=== PATIENT | male | born 1995 | race Hispanic/Latino ===

== ENCOUNTER 2017-04-01 16:35 | Emergency (ER) | payer SELFPAY ==
[~2017-04-01] VITALS: Ht 160 cm; Wt 71.2 kg
[2017-04-01] MEDS ORDERED: NS 1,000 ML IV SCH (18:11)
[2017-04-01] MEDS ORDERED: KETOROLAC 30 MG/ML VIAL (J1885) IV ONE (18:15)
[2017-04-01 19:07] LABS: BASO % 0.5 % (0.0-1.0); EOS # 0.2 10^3/uL (0.0-0.50); IMMATURE GRANULOCYTE % 0.5 % (0-0); LYMPH # 2.2 10^3/uL (1.5-6.5); MEAN CORPUSCULAR HEMOGLOBIN 30.1 pg (27.0-33.0); MEAN CORPUSCULAR HGB CONC 33.3 g/dl (32.0-36.5); MEAN CORPUSCULAR VOLUME 90.2 fl (80.0-96.0); MONO # 0.8 10^3/uL (0.0-0.8); MONO % 10.1 % (0.0-5.0); NEUTROPHILS # 4.5 10^3/uL (1.8-7.7); NEUTROPHILS % 58.9 % (36.0-66.0); PLATELET COUNT, AUTOMATED 319 10^3/uL (150-450); RED CELL DISTRIBUTION WIDTH 13.2 % (11.5-14.5); WHITE BLOOD COUNT 7.7 10^3/uL (4.0-10.0)
--- NOTE | 2017-04-01 19:17 | REP ---
CT abdomen and pelvis without IV or oral contrast: Renal stone protocol. History: Question renal colic. No comparison study. CT findings: Preliminary digital tubular stock glass bulb machine former radiograph demonstrates an unremarkable bowel gas pattern. The lung bases are clear. The liver and the spleen are normal in size, homogeneous in texture. There is mild fatty infiltration of the liver diffusely. No adrenal lesion is seen. Gallbladder and the pancreas are unremarkable. There is no evidence of hydronephrosis. No intrarenal calculus is seen on either side. Normal caliber aorta is seen. No ureteral stone is observed. No bladder calculus seen. Prostate, seminal vesicles and urinary bladder are unremarkable. No abdominal wall defect is seen. Small and large intestinal bowel loops show no abnormality. Normal appendix is seen in the right lower quadrant. Impression: Unremarkable CT abdomen and pelvis without IV or oral contrast. No urinary tract calculi seen. Normal appendix noted. Signed by Ezekiel Laguna MD 04/01/2017 07:51 P
[2017-04-01 19:36] LABS: ALBUMIN 4.3 GM/DL (3.2-5.2); ALBUMIN/GLOBULIN RATIO 1.16 (1.00-1.93); ALKALINE PHOSPHATASE 78 U/L (45-117); ALT/SGPT 55 U/L (12-78); AMYLASE 65 U/L (25-115); ANION GAP 8 MEQ/L (8-16); AST/SGOT 28 U/L (15-37); BILIRUBIN,DIRECT < 0.1 MG/DL (0.0-0.2); BILIRUBIN,TOTAL 0.2 MG/DL (0.2-1.0); BLOOD UREA NITROGEN 9 MG/DL (7-18); CALCIUM LEVEL 8.4 MG/DL (8.5-10.1); CARBON DIOXIDE LEVEL 27 MEQ/L (21-32); CHLORIDE LEVEL 108 MEQ/L (98-107); GLOMERULAR FILTRATION RATE > 60.0 (>60); GLUCOSE, FASTING 83 MG/DL (70-105); POTASSIUM SERUM 3.8 MEQ/L (3.5-5.1); SODIUM LEVEL 143 MEQ/L (136-145)
[2017-04-01] MEDS ORDERED: PRIL20CA9 PO (19:39)
[2017-04-01 19:56] VITALS: BP 128/65
== END 2017-04-01 20:02 | disposition home or self-care (01) ==
LOC: M ED 16:35
DX: K29.70 Gastritis, unspecified, without bleeding (principal)
CPT/HCPCS: 74176; 80048; 80076; 81001; 82150; 83690; 85025; 87086; 96374; 99284; J1885